=== PATIENT | female | born 1940 | race Asian ===

== ENCOUNTER 2018-12-16 13:40 | Inpatient (IN) | payer MEDICAID ==
[~2018-12-16] VITALS: Ht 147.3 cm; Wt 53.0 kg
[2018-12-16 13:48] VITALS: Ht 147.3 cm; Wt 53.0 kg
--- NOTE | 2018-12-16 13:51 | ERD ---
ER Documentation Chief Complaint Chief Complaint abdominal pain HPI The patient is an 78-year-old female, presenting to the ER because of abdominal pain for 1 day, the abdominal pain is diffuse but more prominent on the left side of the abdomen, denies similar symptoms previously, denies fever, chills, neck pain, chest pain, dyspnea, abdominal pain, vomiting. 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 Medications Home Meds Reported Medications Atorvastatin Calcium (Atorvastatin Calcium) 10 Mg Tablet, 5 MG PO QHS, #30 TAB 12/16/18 Loratadine* (Loratadine*) 10 Mg Tablet, 10 MG PO DAILY, #30 TAB 12/16/18 Famotidine* (Famotidine*) 20 Mg Tablet, 20 MG PO DAILY, #30 TAB 12/16/18 Amlodipine Besylate* (Amlodipine Besylate*) 10 Mg Tablet, 10 MG PO DAILY, #30 TAB 12/16/18 Lisinopril* (Lisinopril*) 10 Mg Tablet, 10 MG PO DAILY, #30 TAB 12/16/18 Metoprolol Succinate* (Toprol XL*) 25 Mg Tab.sr.24h, 25 MG PO DAILY, #30 TAB 12/16/18 Allergies Allergies: Coded Allergies: No Known Allergy (Unverified , 12/16/18) Physical Exam Vitals Vital Signs Date Temp Pulse Resp B/P (MAP) Pulse Ox O2 O2 Flow FiO2 Time Delivery Rate 12/16/18 98.6 97 18 147/74 93 Room Air 15:00 (98) 12/16/18 98.6 110 18 159/105 93 13:48 (123) Physical Exam Const: No acute distress. Head: Atraumatic. Eyes: Normal Conjunctiva. ENT: Normal External Ears, Nose and Mouth. Neck: Full range of motion. No meningismus. Resp: Clear to auscultation bilaterally. Cardio: Regular rate and rhythm. Abd: Soft, non distended, normal bowel sounds, abdominal tenderness, more tenderness on the left lower quadrant, positive for colostomy Skin: No petechiae or rashes. Back: No midline or flank tenderness. Ext: No cyanosis, or edema. Neur: Awake and alert. No focal deficit Psych: Normal Mood and Affect. Result Diagram: 12/18/18 0551 12/18/18 0551 Results 24 hrs Laboratory Tests Test 12/16/18 14:00 12/16/18 14:32 White Blood Count 11.1 10^3/ul Red Blood Count 5.75 10^6/ul Hemoglobin 16.4 g/dl Hematocrit 48.5 % Mean Corpuscular Volume 84.3 fl Mean Corpuscular Hemoglobin 28.5 pg Mean Corpuscular Hemoglobin Concent 33.8 g/dl Red Cell Distribution Width 13.2 % Platelet Count 286 10^3/UL Mean Platelet Volume 9.8 fl Immature Granulocytes % 0.500 % Neutrophils % 89.3 % Lymphocytes % 7.2 % Monocytes % 2.7 % Eosinophils % 0.0 % Basophils % 0.3 % Nucleated Red Blood Cells % 0.0 /100WBC Immature Granulocytes # 0.050 10^3/ul Neutrophils # 9.9 10^3/ul Lymphocytes # 0.8 10^3/ul Monocytes # 0.3 10^3/ul Eosinophils # 0.0 10^3/ul Basophils # 0.0 10^3/ul Nucleated Red Blood Cells # 0.0 10^3/ul Sodium Level 138 mmol/L Potassium Level 4.1 mmol/L Chloride Level 103 mmol/L Carbon Dioxide Level 24 mmol/L Anion Gap 11 Blood Urea Nitrogen 14 mg/dl Creatinine 0.66 mg/dl Est Glomerular Filtrat Rate mL/min mL/min Glucose Level 149 mg/dl Calcium Level 9.8 mg/dl Total Bilirubin 0.4 mg/dl Direct Bilirubin 0.00 mg/dl Indirect Bilirubin 0.4 mg/dl Aspartate Amino Transf (AST/SGOT) 30 IU/L Alanine Aminotransferase (ALT/SGPT) 17 IU/L Alkaline Phosphatase 123 IU/L Total Protein 8.8 g/dl Albumin 4.6 g/dl Globulin 4.20 g/dl Albumin/Globulin Ratio 1.09 Lipase 108 U/L Bedside Urine pH (LAB) 5.5 Bedside Urine Protein (LAB) 3+ Bedside Urine Glucose (UA) Negative Bedside Urine Ketones (LAB) 2+ Bedside Urine Blood Trace-intact Bedside Urine Nitrite (LAB) Negative Bedside Urine Leukocyte Esterase (L Negative Current Medications Medications Dose Sig/Jorje Start Time Status Last (Trade) Ordered Route PRN Stop Time Admin Dose Reason Admin Morphine 2 mg ONCE STAT 12/16/18 DC Sulfate IV 14:04 (morphine) 12/16/18 14:06 Ondansetron 4 mg ONCE STAT 12/16/18 DC HCl (Zofran IV 14:04 Inj) 12/16/18 14:06 Sodium 500 ml @ Q1H ONCE 12/16/18 DC 12/16/18 Chloride 500 mls/hr IV 15:30 15:44 12/16/18 16:29 Ketorolac 15 mg ONCE STAT 12/16/18 DC Tromethamine IV 15:46 (Toradol) 12/16/18 15:51 Procedures/[place] [id number] Radiology Main Line: [phone] DIAGNOSTIC IMAGING REPORT Patient: CHENTE WIGGINS : 1940 Age: 78 Sex: F MR #: [id number] DOS: 12/16/18 1404 Ordering MD: PATRICE MORGAN MD Location: E/R Room/Bed: PROCEDURE: CT ABDOMEN AND PELVIS WITHOUT CONTRAST. CLINICAL INDICATION: Abdominal pain TECHNIQUE: CT scan of the abdomen and pelvis without contrast was performed on a multidetector high-resolution CT scanner. The patient was scanned without intravenous contrast. Coronal and sagittal reformatted images were obtained from the axial source images. Images were reviewed on a high-resolution PACS workstation. The total exam CTDI equals 8.2 mGy and the total exam DLP equals 155.3 mGy-cm. One or more of the following dose reduction techniques were used: Automated exposure control. Adjustment of the mA and/or kV according to patient size. Use of iterative reconstruction technique. DICOM images are available COMPARISON: None FINDINGS: CT abdomen: Bilateral lower lobe atelectasis. Heart size is mildly enlarged. No same pericardial effusion. The liver is enlarged. No gross contour deforming masses. Gallbladder is identified, containing gallstones. No gross CT evidence of inflammatory changes at this time. No evidence of intrahepatic or extrahepatic dilatation. Spleen and pancreas are within normal limits. There is a possible duodenal diverticulum. Both adrenal glands are within normal limits. The right kidney is unremarkable. No evidence of obstructive uropathy. The left kidney is absent. The visualized GI tract demonstrates normal caliber loops of small and large bowel. No evidence of bowel obstruction. Stool filled loops of large bowel suggestive of constipation. There is focal inflammation involving the right colon with adjacent inflammatory changes. Anastomotic sutures are noted. Multiple diverticuli are identified. There are several adjacent mildly dilated loops of small bowel within right lower quadrant and pelvis. The appendix not visualized. Status post hemicolectomy. Left lower quadrant colostomy is identified. Atherosclerotic calcification aorta is identified. No same retroperitoneal lymphadenopathy. CT pelvis: The bladder is partially collapsed. The uterus is atrophic calcified. Status post rectosigmoid colon resection. No significant free fluid. Same pelvic lymphadenopathy. The visualized osseous structures demonstrates multilevel degenerative disc disease of the spine and generalized osteopenia. IMPRESSION: 1. Thickening of the howard of the right colon with adjacent fatty stranding and multiple diverticuli most likely consistent with focal diverticulitis. No evidence of perforation or focal fluid collections at this time. The appendix is within normal limits. 2. Multiple adjacent fluid-filled loops of small bowel which are mildly p rominent suggestive of adjacent enteritis and reactive ileus. 3. Cholelithiasis without gross CT evidence of inflammatory changes. For the left kidney is absent. Correlate clinical history. 5 atherosclerotic disease aorta. 6. Status post hemicolectomy. Left lower quadrant colostomy. 7. No evidence of free fluid or free air. No gross focal fluid collections. 8. Possible duodenal diverticulum. Recommend eventual follow-up CT scan with IV and oral contrast. RPTAT: AAPP Physician Too Date Time Electronically viewed and signed by Physician Too on 12/16/2018 15:25 JL/ CC: PATRICE MORGAN MD [id number] MEDICAL MAKING DECISION: The patient is a 78-year-old female, presenting with acute diverticulitis. She was treated with Levaquin IV and Flagyl IV for acute diverticulitis, 500 normal saline IV for acute dehydration, Toradol and 15 mg IV for pain with good response The differential diagnoses considered include but are not limited to cholelithiasis, cholecystitis, choledocholithiasis, cholangitis, pancreatitis, hepatitis, gastritis, peptic ulcer disease, gastric ulcer, appendicitis, cystitis, diverticulitis, partial small bowel obstruction. Departure Diagnosis: Primary Impression: Diverticulitis Additional Impressions: Cholelithiasis Dehydration Condition: Stable Comments I discussed the findings with the patient. I discussed the patient with the hospitalist Dr Brown at 3:50p . who was made aware of the lab, the treatment, the patient condition. The patient is admitted to [facility] Disclaimer: Inadvertent spelling and grammatical errors are likely due to EHR/dictation software use and do not reflect on the overall quality of patient care. Also, please note that the electronic time recorded on this note does not necessarily reflect the actual time of the patient encounter. PATRICE MORGAN MD Dec 16, 2018 13:51
[2018-12-16] MEDS ORDERED: morphine 2 MG INJ IV STA (14:04)
[2018-12-16] MEDS ORDERED: ONDANSETRON 4 MG INJ IV STA (14:04)
[2018-12-16] MEDS ORDERED: LORA10TA3 PO (15:14)
[2018-12-16] MEDS ORDERED: METO-335 PO (15:14)
[2018-12-16] MEDS ORDERED: AMLO-147 PO (15:14)
[2018-12-16] MEDS ORDERED: FAMO20TA18 PO (15:14)
[2018-12-16] MEDS ORDERED: ATOR10TA65 PO (15:14)
[2018-12-16] MEDS ORDERED: LISI10TA2 PO (15:14)
[2018-12-16] MEDS ORDERED: SOD CHLORIDE 0.9% 500 ML IV ONE (15:30)
[2018-12-16] MEDS ORDERED: KETOROLAC 15 MG INJ IV STA (15:46)
[2018-12-16] MEDS ORDERED: metroNIDAZOLE 500 MG/NS (PMX) 100 ML IVPB ONE (16:00)
[2018-12-16] MEDS ORDERED: LEVOFLOXACIN 750MG/D5W (PMX) 150 ML IVPB ONE (16:00)
[2018-12-16] MEDS ORDERED: FAMOTIDINE 20 MG TAB PO SCH (16:30)
[2018-12-16] MEDS ORDERED: NACL 0.9% 3 ML SYG IV SCH (17:00)
[2018-12-16] MEDS ORDERED: ACETAMINOPHEN 325 MG TAB PO PRN (17:00)
--- NOTE | 2018-12-16 17:01 | HP ---
Date/Time of Note Date/Time of Note DATE: 12/16/18 TIME: 16:48 Assessment/Plan VTE Prophylaxis SCD applied (from Nsg): Yes Pharmacological prophylaxis: NA/contraindicated Pharm contraindication: low risk/ambulating Lines/Catheters IV Catheter Type (from Nrsg): Saline Lock Assessment/Plan Assessment/Plan 78 yo woman with history of colon cancer presents with abdominal pain. #Abdominal pain - Differential includes food poisoning versus diverticulitis versus dyspepsia - Will start protonix BID - IV antibiotics for diverticulitis: cipro and flagyl for 7-10 days, repeat colonoscopy per [facility] - IV fluids - Exam and imaging otherwise benign. Will advance diet to clear liquids for now. #HTN - Continue home antihypertensives. DVT: SCDs GI: Protonix Result Diagram: 12/16/18 1400 12/16/18 1400 HPI/ROS Admit Date/Time Admit Date/Time Dec 16, 2018 Hx of Present Illness Ms. Mckeon is a pleasant 78 yo woman with history of colorectal carcinoma and diverticulosis who presents with acute abdominal pain. She was in her usual state of health until last night, when she was woken up by acute stabbing mid abdominal pain. Looks about lower epigastric -> umbilical. She had eaten some ham and [id number] for dinner that had been left out for a few days so she was concerned about food poisoning. She induced vomiting in herself and that seemed to resolve symptoms slightly. She then came to the hospital for further evaluation. She had a colonoscopy late 2017 at [facility] showing diverticulosis or diverticulitis. She's never had this pain before. In the ED she was tachy to 110, afebrile, BP 159/105. WBC 11.1, labs otherwise unremarkable. CT showed constipation, R colon diverticulitis. ROS She denies fever, chills, night sweats, weight loss, fatigue, malaise, headache, vision changes, sore throat, dysphagia, cough, dyspnea, chest pain/pressure/palpitations, diarrhea, constipation, melena. PMH/Family/Social Past Medical History Colon cancer Jul 2014 with neoadjuvant chemoradiation and hemicolectomy with permanent end colostomy. Hypertension Dyslipidemia Medications Current Medications Sodium Chloride 500 ml @ 500 mls/hr Q1H ONCE IV Last administered on 12/16/18at 15:44; Admin Dose 500 MLS/HR; Start 2/18/19 at 15:30; Stop 12/16/18 at 16:29 Levofloxacin/ Dextrose 150 ml @ 100 mls/hr ONCE ONCE IVPB ; Start 12/16/18 at 16:00; Stop 12/16/18 at 17:29 Metronidazole 100 ml @ 100 mls/hr ONCE ONCE IVPB Last administered on 12/16/18at 15:42; Admin Dose 100 MLS/HR; Start 12/16/18 at 16:00; Stop 12/16/18 at 16:59 Coded Allergies: No Known Allergy (Unverified , 12/16/18) Past Surgical History Jul 2014 end colostomy 1979 partial thyroidectomy 1972 complete L nephrectomy (donated it to her sister) Social History Lives at home with cousin. Cares for self. Alcohol Use: none Smoking Status: Former smoker Drug Use: none Exam/Review of Systems Vital Signs Vitals Vital Signs Date Temp Pulse Resp B/P (MAP) Pulse Ox O2 O2 Flow FiO2 Time Delivery Rate 12/16/18 98.6 97 18 147/74 93 Room Air 15:00 (98) Exam Exam Gen: Well appearing woman in no acute distress. Eyes: PERRL, no icterus HEENT: Dry mucous membranes, clear oropharynx, no pharyngeal erythema Neck: No JVD. No lymphadenopathy. Card: Regular rate and rhythm, no murmurs Pulm: Clear to auscultation bilaterally. Abd: LLQ colostomy with firm, formed stool. Diffusely tender to moderate palpation. Nondistended, no guarding, no rebound tenderness. Ext: No cyanosis, clubbing, edema Skin: warm, dry, well perfused. LAKESHA TAMAYO MD Dec 16, 2018 17:00
[2018-12-16] MEDS: PANTOPRAZOLE 40 MG INJ IV SCH (18:23)
[2018-12-16 20:00] VITALS: BP 129/71; PULSE 76; RESP 18
[2018-12-16] MEDS: SENNA TAB PO SCH (20:46)
[2018-12-16] MEDS: ATORVASTATIN 10 MG TAB PO SCH (20:46)
[2018-12-16] MEDS: CIPROFLOXACIN 400MG/D5W 200 ML IVPB SCH (21:34)
[2018-12-16] MEDS ORDERED: metroNIDAZOLE (5 MG/ML) IV SYG IV* SCH (22:00)
[2018-12-16] MEDS: Metronidazole 500 MG in NS 100 ML IVPB SCH (22:47)
[2018-12-16] MEDS: ONDANSETRON 4 MG INJ IV PRN (22:47)
[2018-12-17 02:00] VITALS: BP 113/63; PULSE 78; RESP 18
[2018-12-17] MEDS: Metronidazole 500 MG in NS 100 ML IVPB SCH ×3 (06:12→22:59)
[2018-12-17] MEDS: PANTOPRAZOLE 40 MG INJ IV SCH ×2 (06:12→18:04)
[2018-12-17 07:15] VITALS: BP 126/65; PULSE 74; RESP 18
[2018-12-17] MEDS: LORATADINE 10 MG TAB PO SCH (10:34)
[2018-12-17] MEDS: AMLODIPINE 10 MG TAB PO SCH (10:34)
[2018-12-17] MEDS: SENNA TAB PO SCH ×2 (10:35→20:35)
[2018-12-17] MEDS: METOPROLOL (XL) 25 MG TAB PO SCH (10:35)
[2018-12-17] MEDS: LISINOPRIL 10 MG TAB PO SCH (10:36)
[2018-12-17] MEDS: ONDANSETRON 4 MG INJ IV PRN (10:41)
[2018-12-17] MEDS: CIPROFLOXACIN 400MG/D5W 200 ML IVPB SCH ×2 (10:44→21:40)
--- NOTE | 2018-12-17 13:16 | PN ---
Date/Time of Note Date/Time of Note DATE: 12/17/18 TIME: 13:12 Assessment/Plan VTE Prophylaxis Risk score (from Nsg)>0 risk: 4 SCD applied (from Nsg): Yes Pharmacological prophylaxis: NA/contraindicated Pharm contraindication: low risk/ambulating Lines/Catheters IV Catheter Type (from Nrsg): Saline Lock Urinary Cath still in place: No Assessment/Plan Assessment/Plan 78 yo woman with history of colon cancer presents with abdominal pain. #Abdominal pain #PO intolerance - Differential includes food poisoning versus diverticulitis versus dyspepsia - Cont protonix BID - IV antibiotics for diverticulitis: cipro and flagyl for 7-10 days, repeat colonoscopy per [facility] - IV fluids - Continue clear liquids, advance as tolerated. - Patient appears constipated, will advance bowel regimen. #HTN - Continue home antihypertensives. DVT: SCDs GI: Protonix Result Diagram: 12/17/1852712/17/18527 Subjective 24 Hr Interval Summary Free Text/Dictation Continues to have intermittent episodes of stabbing mid abdominal pain lasting seconds. Cannot tolerate clear liquid diet. Develops nausea soon after drinking. Complains of dizziness when standing. Has been incontinent of urine; says this has lasted over a year. Exam/Review of Systems Exam Vitals Vital Signs Date Temp Pulse Resp B/P (MAP) Pulse Ox O2 O2 Flow FiO2 Time Delivery Rate 12/17/18 98.5 74 18 126/65 94 07:15 (85) 12/16/18 Room Air 15:00 Intake and Output 12/16/18 12/16/18 12/17/18 1515:00 23:00 07:00 IntakeIntake Total 400 ml 100 ml BalanceBalance 400 ml 100 ml Exam Gen: Well appearing woman in no acute distress. Eyes: PERRL, no icterus HEENT: Dry mucous membranes, clear oropharynx, no pharyngeal erythema Neck: No JVD. No lymphadenopathy. Card: Regular rate and rhythm, no murmurs Pulm: Clear to auscultation bilaterally. Abd: LLQ colostomy with firm, formed stool. Nontender to moderate palpation thr oughout. Nondistended, no guarding, no rebound tenderness. Ext: No cyanosis, clubbing, edema Skin: warm, dry, well perfused. Results Results 24hrs Laboratory Tests Test 12/16/18 14:00 12/16/18 14:32 12/17/18 05:28 White Blood Count 11.1 H 8.1 # Red Blood Count 5.75 H 4.51 # Hemoglobin 16.4 H 12.9 # Hematocrit 48.5 H 38.9 Mean Corpuscular Volume 84.3 86.3 Mean Corpuscular Hemoglobin 28.5 L 28.6 L Mean Corpuscular 33.8 33.2 Hemoglobin Concent Red Cell Distribution Width 13.2 13.2 Platelet Count 286 226 # Mean Platelet Volume 9.8 9.6 Immature Granulocytes % 0.500 H 0.400 Neutrophils % 89.3 H 78.6 H Lymphocytes % 7.2 L 13.5 L Monocytes % 2.7 7.0 Eosinophils % 0.0 0.4 Basophils % 0.3 0.1 Nucleated Red Blood Cells % 0.0 0.0 Immature Granulocytes # 0.050 H 0.030 Neutrophils # 9.9 H 6.4 Lymphocytes # 0.8 1.1 Monocytes # 0.3 0.6 Eosinophils # 0.0 0.0 Basophils # 0.0 0.0 Nucleated Red Blood Cells # 0.0 0.0 Sodium Level 138 138 Potassium Level 4.1 4.3 Chloride Level 103 101 Carbon Dioxide Level 24 24 Anion Gap 11 13 Blood Urea Nitrogen 14 16 Creatinine 0.66 0.86 Est Glomerular Filtrat Rate mL/min Glucose Level 149 120 Calcium Level 9.8 8.8 Total Bilirubin 0.4 0.4 Direct Bilirubin 0.00 0.00 Indirect Bilirubin 0.4 0.4 Aspartate Amino Transf (AST/SGOT) 30 20 Alanine 17 21 Aminotransferase (ALT/SGPT) Alkaline Phosphatase 123 H 69 Total Protein 8.8 H 6.8 # Albumin 4.6 3.5 # Globulin 4.20 H 3.30 H Albumin/Globulin Ratio 1.09 1.06 Lipase 108 Bedside Urine pH (LAB) 5.5 Bedside Urine Protein (LAB) 3+ H Bedside Urine Glucose (UA) Negative Bedside Urine Ketones (LAB) 2+ H Bedside Urine Blood Trace-intact H Bedside Urine Nitrite (LAB) Negative Bedside Urine Leukocyte Esterase Negative (L Hemoglobin A1c 5.9 Phosphorus Level 4.3 Magnesium Level 1.8 Triglycerides Level 127 Cholesterol Level 217 H LDL Cholesterol, Calculated 161 HDL Cholesterol 31 L Cholesterol/HDL Ratio 7.0 Thyroid Stimulating Hormone (TSH) 0.821 Medications Medication Current Medications Amlodipine Besylate (Norvasc) 10 mg DAILY PO Last administered on 12/17/18 10:34; Admin Dose 10 MG; Start 12/17/18 at 09:00 Atorvastatin Calcium (Lipitor) 5 mg QHS PO Last administered on 12/16/18 20:46; Admin Dose 5 MG; Start 12/16/18 at 21:00 Lisinopril (Zestril) 10 mg DAILY PO Last administered on 12/17/18 10:36; Admin Dose 10 MG; Start 12/17/18 at 09:00 Loratadine (Claritin) 10 mg DAILY PO Last administered on 12/17/18 10:34; Admin Dose 10 MG; Start 12/17/18 at 09:00 Metoprolol Succinate (Toprol Xl) 25 mg DAILY PO Last administered on 12/17/18 10:35; Admin Dose 25 MG; Start 12/17/18 at 09:00 IV Flush (NS 3 ml) 3 ml PER PROTOCOL IV ; Start 12/16/18 at 17:00 Ondansetron HCl (Zofran Inj) 4 mg Q6H PRN IV NAUSEA/VOMITING Last administered on 12/17/18 10:41; Admin Dose 4 MG; Start 12/16/18 at 17:00 Acetaminophen (Tylenol Tab) 650 mg Q6H PRN PO .PAIN 1-3 OR TEMP Last administered on 12/16/18 18:24; Admin Dose 650 MG; Start 12/16/18 at 17:00 Senna (Senokot) 2 tab BID PO Last administered on 12/17/18 10:35; Admin Dose 2 TAB; Start 12/16/18 at 21:00 Ciprofloxacin/ Dextrose 200 ml @ 200 mls/hr Q12 IVPB Last administered on 12/17/18 10:44; Admin Dose 200 MLS/HR; Start 12/16/18 at 21:00 Metronidazole 100 ml @ 100 mls/hr Q8 IVPB Last administered on 12/17/18 06:12; Admin Dose 100 MLS/HR; Start 12/16/18 at 22:00 Pantoprazole (Protonix Iv) 40 mg BID@,18 IV Last administered on 12/17/18 06:12; Admin Dose 40 MG; Start 2/18/19 at 18:00 LAKESHA TAMAYO MD Dec 17, 2018 13:16
[2018-12-17] MEDS: SOD CHLORIDE 0.9% 1,000 ML IV SCH (14:32)
[2018-12-17] MEDS: POLYETHYLENE GLYCOL 17 GM PACKET PO SCH (14:32)
[2018-12-17 15:05] VITALS: BP 121/61; PULSE 71; RESP 18
[2018-12-17 20:30] VITALS: BP 149/63; PULSE 85; RESP 18
[2018-12-17] MEDS: ATORVASTATIN 10 MG TAB PO SCH (20:35)
[2018-12-18 02:24] VITALS: BP 118/59; PULSE 61; RESP 18
[2018-12-18] MEDS: SOD CHLORIDE 0.9% 1,000 ML IV SCH ×2 (05:55→16:10)
[2018-12-18] MEDS: PANTOPRAZOLE 40 MG INJ IV SCH ×2 (05:55→17:41)
[2018-12-18] MEDS: Metronidazole 500 MG in NS 100 ML IVPB SCH ×3 (06:05→23:19)
[2018-12-18 08:00] VITALS: BP 131/63; PULSE 70; RESP 16
[2018-12-18] MEDS: CIPROFLOXACIN 400MG/D5W 200 ML IVPB SCH ×2 (08:42→22:13)
[2018-12-18] MEDS: POLYETHYLENE GLYCOL 17 GM PACKET PO SCH (08:42)
[2018-12-18] MEDS: METOPROLOL (XL) 25 MG TAB PO SCH (08:44)
[2018-12-18] MEDS: LISINOPRIL 10 MG TAB PO SCH (08:45)
[2018-12-18] MEDS: AMLODIPINE 10 MG TAB PO SCH (08:45)
[2018-12-18] MEDS: SENNA TAB PO SCH ×2 (08:45→20:11)
[2018-12-18] MEDS: LORATADINE 10 MG TAB PO SCH (08:46)
--- NOTE | 2018-12-18 14:40 | PN ---
Date/Time of Note Date/Time of Note DATE: 12/18/18 TIME: 14:35 Assessment/Plan VTE Prophylaxis Risk score (from Nsg)>0 risk: 5 SCD applied (from Nsg): Yes Pharmacological prophylaxis: LMWH Lines/Catheters IV Catheter Type (from Nrsg): Saline Lock Urinary Cath still in place: No Assessment/Plan Assessment/Plan 78 yo woman with history of colon cancer presents with abdominal pain. #Abdominal pain #PO intolerance - Differential includes food poisoning versus diverticulitis versus dyspepsia - Cont protonix BID - IV antibiotics for diverticulitis: cipro and flagyl for 7-10 days, repeat colonoscopy per [facility] - IV fluids - Continue clear liquids, advance as tolerated. - No more constipation #Hypoxia - She reports history of COPD - Will continue home albuterol - If drops hypoxic <88% will qualify for home O2. #HTN - Continue home antihypertensives. DVT: SCDs GI: Protonix Result Diagram: 12/18/18 0551 12/18/18 0551 Subjective 24 Hr Interval Summary Free Text/Dictation Last night, apparently she got hypoxic and required nasal cannula. The patient reports history of COPD, has PRN albuterol. Vomited last night trying to eat clear liquids. This morning was unable to get out of bed with PT due to dizziness and fatigue. Now having liquid stools. Exam/Review of Systems Exam Vitals Vital Signs Date Temp Pulse Resp B/P (MAP) Pulse Ox O2 O2 Flow FiO2 Time Delivery Rate 12/18/18 98.4 70 16 131/63 92 Room Air 08:00 (85) Intake and Output 12/17/18 12/17/18 12/18/18 1515:00 23:00 07:00 IntakeIntake Total 740 ml 725 ml 1275 ml BalanceBalance 740 ml 725 ml 1275 ml Exam Gen: Well appearing woman in no acute distress. Eyes: PERRL, no icterus HEENT: Moist mucous membranes, clear oropharynx, no pharyngeal erythema Neck: No JVD. No lymphadenopathy. Card: Regular rate and rhythm, no murmurs Pulm: Clear to auscultation bilaterally. Abd: LLQ colostomy with liquid stool. Nontender to moderate palpation throughout. Nondistended, no guarding, no rebound tenderness. Ext: No cyanosis, clubbing, edema Skin: warm, dry, well perfused. Results Results 24hrs Laboratory Tests Test 12/18/18 05:51 White Blood Count 6.6 Red Blood Count 4.17 L Hemoglobin 12.0 Hematocrit 36.9 L Mean Corpuscular Volume 88.5 Mean Corpuscular Hemoglobin 28.8 L Mean Corpuscular Hemoglobin Concent 32.5 Red Cell Distribution Width 13.2 Platelet Count 207 Mean Platelet Volume 9.7 Immature Granulocytes % 0.300 Neutrophils % 73.4 Lymphocytes % 18.1 Monocytes % 7.1 Eosinophils % 0.8 Basophils % 0.3 Nucleated Red Blood Cells % 0.0 Immature Granulocytes # 0.020 Neutrophils # 4.9 Lymphocytes # 1.2 Monocytes # 0.5 Eosinophils # 0.1 Basophils # 0.0 Nucleated Red Blood Cells # 0.0 Sodium Level 140 Potassium Level 3.8 Chloride Level 104 Carbon Dioxide Level 24 Anion Gap 12 Blood Urea Nitrogen 11 Creatinine 0.81 Est Glomerular Filtrat Rate mL/min Glucose Level 104 Calcium Level 8.6 Phosphorus Level 3.8 Magnesium Level 1.8 Total Bilirubin 0.2 Direct Bilirubin 0.00 Indirect Bilirubin 0.2 Aspartate Amino Transf (AST/SGOT) 18 Alanine Aminotransferase (ALT/SGPT) 21 Alkaline Phosphatase 59 Total Protein 6.1 Albumin 3.0 L Globulin 3.10 Albumin/Globulin Ratio 0.96 Medications Medication Current Medications Amlodipine Besylate (Norvasc) 10 mg DAILY PO Last administered on 12/18/18at 08:45; Admin Dose 10 MG; Start 12/17/18 at 09:00 Atorvastatin Calcium (Lipitor) 5 mg QHS PO Last administered on 12/17/18at 20:35; Admin Dose 5 MG; Start 12/16/18 at 21:00 Lisinopril (Zestril) 10 mg DAILY PO Last administered on 12/18/18 08:45; Admin Dose 10 MG; Start 12/17/18 at 09:00 Loratadine (Claritin) 10 mg DAILY PO Last administered on 12/18/18 08:46; Admin Dose 10 MG; Start 12/17/18 at 09:00 Metoprolol Succinate (Toprol Xl) 25 mg DAILY PO Last administered on 12/18/18at 08:44; Admin Dose 25 MG; Start 12/17/18 at 09:00 IV Flush (NS 3 ml) 3 ml PER PROTOCOL IV ; Start 12/16/18 at 17:00 Ondansetron HCl (Zofran Inj) 4 mg Q6H PRN IV NAUSEA/VOMITING Last administered on 12/17/18 10:41; Admin Dose 4 MG; Start 12/16/18 at 17:00 Acetaminophen (Tylenol Tab) 650 mg Q6H PRN PO .PAIN 1-3 OR TEMP Last administered on 12/16/18 18:24; Admin Dose 650 MG; Start 12/16/18 at 17:00 Senna (Senokot) 2 tab BID PO Last administered on 12/18/18 08:45; Admin Dose 2 TAB; Start 12/16/18 at 21:00 Ciprofloxacin/ Dextrose 200 ml @ 200 mls/hr Q12 IVPB Last administered on 12/18/18 08:42; Admin Dose 200 MLS/HR; Start 12/16/18 at 21:00 Metronidazole 100 ml @ 100 mls/hr Q8 IVPB Last administered on 12/18/18 14:22; Admin Dose 100 MLS/HR; Start 12/16/18 at 22:00 Pantoprazole (Protonix Iv) 40 mg BID@06,18 IV Last administered on 12/18/18 05:55; Admin Dose 40 MG; Start 12/16/18 at 18:00 Polyethylene Glycol (Miralax) 17 gm DAILY PO Last administered on 12/18/18 08:42; Admin Dose 17 GM; Start 12/17/18 at 13:30 Sodium Chloride 1,000 ml @ 75 mls/hr [id number] IV Last administered on 12/18/18 05:55; Admin Dose 75 MLS/HR; Start 12/17/18 at 13:30 LAKESHA TAMAYO MD Dec 18, 2018 14:40
[2018-12-18 15:00] VITALS: BP 140/60; PULSE 72; RESP 18
[2018-12-18] MEDS ORDERED: ALBUTEROL HFA 8 GM INHALER INH PRN (15:00)
[2018-12-18] MEDS ORDERED: MAGNESIUM SULFATE 2 GM/50 ML 50 ML IVPB ONE (16:00)
[2018-12-18 20:00] VITALS: BP 123/60; PULSE 69; RESP 18
[2018-12-18] MEDS: ATORVASTATIN 10 MG TAB PO SCH (20:10)
[2018-12-19 02:20] VITALS: BP 120/62; PULSE 70; RESP 18
[2018-12-19] MEDS: SOD CHLORIDE 0.9% 1,000 ML IV SCH ×2 (03:21→18:50)
[2018-12-19] MEDS: PANTOPRAZOLE 40 MG INJ IV SCH ×2 (05:18→17:24)
[2018-12-19] MEDS: Metronidazole 500 MG in NS 100 ML IVPB SCH ×3 (05:18→23:35)
[2018-12-19 07:45] VITALS: BP 139/61; PULSE 76; RESP 18
[2018-12-19] MEDS: CIPROFLOXACIN 400MG/D5W 200 ML IVPB SCH ×2 (08:29→21:54)
[2018-12-19] MEDS: POLYETHYLENE GLYCOL 17 GM PACKET PO SCH (08:30)
[2018-12-19] MEDS: LISINOPRIL 10 MG TAB PO SCH (08:31)
[2018-12-19] MEDS: LORATADINE 10 MG TAB PO SCH (08:31)
[2018-12-19] MEDS: SENNA TAB PO SCH ×2 (08:31→20:12)
[2018-12-19] MEDS: AMLODIPINE 10 MG TAB PO SCH (08:31)
[2018-12-19] MEDS: METOPROLOL (XL) 25 MG TAB PO SCH (08:32)
[2018-12-19] MEDS: ENOXAPARIN 40 MG/0.4 ML SYG SC SCH (08:33)
--- NOTE | 2018-12-19 12:49 | PN ---
Date/Time of Note Date/Time of Note DATE: 12/19/18 TIME: 12:46 Assessment/Plan VTE Prophylaxis Risk score (from Nsg)>0 risk: 5 SCD applied (from Nsg): Yes Pharmacological prophylaxis: LMWH Lines/Catheters IV Catheter Type (from Nrsg): Peripheral IV Urinary Cath still in place: No Assessment/Plan Assessment/Plan 78 yo woman with history of colon cancer presents with abdominal pain. #Abdominal pain #PO intolerance - Differential includes food poisoning versus diverticulitis versus dyspepsia - Cont protonix BID - IV antibiotics for diverticulitis: cipro and flagyl for 7-10 days, repeat colonoscopy per [facility] - IV fluids - Continue clear liquids, advance as tolerated. - Patient is still NPO intolerant with nausea and vomiting. Will plan for XR small bowel followthrough. #Hypoxia - She reports history of COPD - Will continue home albuterol - If drops hypoxic <88% will qualify for home O2. #HTN - Continue home antihypertensives. DVT: SCDs GI: Protonix Result Diagram: 12/19/18 0902 12/19/18 0902 Results 24hrs Laboratory Tests Test 12/19/18 09:02 White Blood Count 8.5 # Red Blood Count 4.36 Hemoglobin 12.3 Hematocrit 38.2 Mean Corpuscular Volume 87.6 Mean Corpuscular Hemoglobin 28.2 L Mean Corpuscular Hemoglobin Concent 32.2 Red Cell Distribution Width 13.1 Platelet Count 198 Mean Platelet Volume 9.5 Immature Granulocytes % 0.700 H Neutrophils % 79.7 H Lymphocytes % 12.5 L Monocytes % 6.0 Eosinophils % 0.7 Basophils % 0.4 Nucleated Red Blood Cells % 0.0 Immature Granulocytes # 0.060 H Neutrophils # 6.8 Lymphocytes # 1.1 Monocytes # 0.5 Eosinophils # 0.1 Basophils # 0.0 Nucleated Red Blood Cells # 0.0 Sodium Level 138 Potassium Level 3.8 Chloride Level 108 Carbon Dioxide Level 23 Anion Gap 7 Blood Urea Nitrogen 8 Creatinine 0.73 Est Glomerular Filtrat Rate mL/min Glucose Level 176 Calcium Level 8.5 Phosphorus Level 3.3 Magnesium Level 1.7 Subjective 24 Hr Interval Summary Free Text/Dictation After eating grits had several more episodes of emesis. Reports stabbing abdominal pain has improved. Able to sit up, not ambulate with PT. Exam/Review of Systems Exam Vitals Vital Signs Date Temp Pulse Resp B/P (MAP) Pulse Ox O2 O2 Flow FiO2 Time Delivery Rate 12/19/18 98.9 76 18 139/61 94 Nasal 07:45 (87) Cannula Intake and Output 12/18/18 12/18/18 12/19/18 1515:00 23:00 07:00 IntakeIntake Total 850 ml 900 ml 1280 ml BalanceBalance 850 ml 900 ml 1280 ml Exam Gen: Well appearing woman in no acute distress. Eyes: PERRL, no icterus HEENT: Moist mucous membranes, clear oropharynx, no pharyngeal erythema Neck: No JVD. No lymphadenopathy. Card: Regular rate and rhythm, no murmurs Pulm: Clear to auscultation bilaterally. Abd: LLQ colostomy with liquid stool. Guarding to deep palpation. Nondistended, no rebound tenderness. Ext: No cyanosis, clubbing, edema Skin: warm, dry, well perfused. Results Results 24hrs Laboratory Tests Test 12/19/18 09:02 White Blood Count 8.5 # Red Blood Count 4.36 Hemoglobin 12.3 Hematocrit 38.2 Mean Corpuscular Volume 87.6 Mean Corpuscular Hemoglobin 28.2 L Mean Corpuscular Hemoglobin Concent 32.2 Red Cell Distribution Width 13.1 Platelet Count 198 Mean Platelet Volume 9.5 Immature Granulocytes % 0.700 H Neutrophils % 79.7 H Lymphocytes % 12.5 L Monocytes % 6.0 Eosinophils % 0.7 Basophils % 0.4 Nucleated Red Blood Cells % 0.0 Immature Granulocytes # 0.060 H Neutrophils # 6.8 Lymphocytes # 1.1 Monocytes # 0.5 Eosinophils # 0.1 Basophils # 0.0 Nucleated Red Blood Cells # 0.0 Sodium Level 138 Potassium Level 3.8 Chloride Level 108 Carbon Dioxide Level 23 Anion Gap 7 Blood Urea Nitrogen 8 Creatinine 0.73 Est Glomerular Filtrat Rate mL/min Glucose Level 176 Calcium Level 8.5 Phosphorus Level 3.3 Magnesium Level 1.7 Medications Medication Current Medications Amlodipine Besylate (Norvasc) 10 mg DAILY PO Last administered on 12/19/18at 08:31; Admin Dose 10 MG; Start 12/17/18 at 09:00 Atorvastatin Calcium (Lipitor) 5 mg QHS PO Last administered on 12/18/18at 20:10; Admin Dose 5 MG; Start 12/16/18 at 21:00 Lisinopril (Zestril) 10 mg DAILY PO Last administered on 12/19/18 08:31; Admin Dose 10 MG; Start 12/17/18 at 09:00 Loratadine (Claritin) 10 mg DAILY PO Last administered on 12/19/18 08:31; Admin Dose 10 MG; Start 12/17/18 at 09:00 Metoprolol Succinate (Toprol Xl) 25 mg DAILY PO Last administered on 12/19/18 08:32; Admin Dose 25 MG; Start 12/17/18 at 09:00 IV Flush (NS 3 ml) 3 ml PER PROTOCOL IV ; Start 12/16/18 at 17:00 Ondansetron HCl (Zofran Inj) 4 mg Q6H PRN IV NAUSEA/VOMITING Last administered on 12/17/18 10:41; Admin Dose 4 MG; Start 12/16/18 at 17:00 Acetaminophen (Tylenol Tab) 650 mg Q6H PRN PO .PAIN 1-3 OR TEMP Last administered on 12/16/18 18:24; Admin Dose 650 MG; Start 12/16/18 at 17:00 Senna (Senokot) 2 tab BID PO Last administered on 12/19/18 08:31; Admin Dose 2 TAB; Start 12/16/18 at 21:00 Ciprofloxacin/ Dextrose 200 ml @ 200 mls/hr Q12 IVPB Last administered on 12/19/18 08:29; Admin Dose 200 MLS/HR; Start 12/16/18 at 21:00 Metronidazole 100 ml @ 100 mls/hr Q8 IVPB Last administered on 12/19/18 05:18; Admin Dose 100 MLS/HR; Start 12/16/18 at 22:00 Pantoprazole (Protonix Iv) 40 mg BID@06,18 IV Last administered on 12/19/18 05:18; Admin Dose 40 MG; Start 12/16/18 at 18:00 Polyethylene Glycol (Miralax) 17 gm DAILY PO Last administered on 12/19/18 08:30; Admin Dose 17 GM; Start 12/17/18 at 13:30 Sodium Chloride 1,000 ml @ 75 mls/hr [id number] IV Last administered on 12/19/18 03:21; Admin Dose 75 MLS/HR; Start 12/17/18 at 13:30 Albuterol (Ventolin Hfa) 2 puff Q4H RESP THERAPY PRN INH SHORTNESS OF BREATH; Start 12/18/18 at 15:00 Enoxaparin Sodium (Lovenox) 40 mg DAILY SC Last administered on 12/19/18at 08:33; Admin Dose 40 MG; Start 12/19/18 at 09:00 LAKESHA TAMAYO MD Dec 19, 2018 12:48
[2018-12-19 14:19] VITALS: BP 135/64; PULSE 81; RESP 16
[2018-12-19] MEDS: ONDANSETRON 4 MG INJ IV PRN (14:28)
[2018-12-19] MEDS ORDERED: DIATR MEGLU/DIATRIZOATE SODIUM 120 ML BTL ONE (14:31)
[2018-12-19 20:00] VITALS: BP 146/66; PULSE 71; RESP 18
[2018-12-19] MEDS: ATORVASTATIN 10 MG TAB PO SCH (20:13)
[2018-12-20] MEDS: SOD CHLORIDE 0.9% 1,000 ML IV SCH ×2 (00:37→20:38)
[2018-12-20 02:00] VITALS: BP 120/60; PULSE 70; RESP 18
[2018-12-20] MEDS: Metronidazole 500 MG in NS 100 ML IVPB SCH ×2 (05:00→14:07)
[2018-12-20] MEDS: PANTOPRAZOLE 40 MG INJ IV SCH (05:01)
[2018-12-20 07:45] VITALS: BP 138/63; PULSE 70; RESP 18
[2018-12-20] MEDS: POLYETHYLENE GLYCOL 17 GM PACKET PO SCH (09:00)
[2018-12-20] MEDS: LORATADINE 10 MG TAB PO SCH ×2 (09:11→09:12)
[2018-12-20] MEDS: CIPROFLOXACIN 400MG/D5W 200 ML IVPB SCH (09:12)
[2018-12-20] MEDS: SENNA TAB PO SCH ×3 (09:12→20:36)
[2018-12-20] MEDS: ENOXAPARIN 40 MG/0.4 ML SYG SC SCH (09:16)
[2018-12-20] MEDS: LISINOPRIL 10 MG TAB PO SCH (09:19)
[2018-12-20] MEDS: METOPROLOL (XL) 25 MG TAB PO SCH (09:20)
[2018-12-20] MEDS: AMLODIPINE 10 MG TAB PO SCH (09:20)
[2018-12-20] MEDS: ONDANSETRON 4 MG INJ IV PRN (10:00)
[2018-12-20] MEDS ORDERED: ONDANSETRON 4 MG INJ IV PRN (14:30)
[2018-12-20 14:40] VITALS: BP 127/59; PULSE 71; RESP 18
--- NOTE | 2018-12-20 14:50 | PN ---
Date/Time of Note Date/Time of Note DATE: 12/20/18 TIME: 14:47 Assessment/Plan VTE Prophylaxis Risk score (from Ns)>0 risk: 5 SCD applied (from Ns): Yes Pharmacological prophylaxis: NA/contraindicated Pharm contraindication: low risk/ambulating Lines/Catheters IV Catheter Type (from Nrsg): Peripheral IV Urinary Cath still in place: No Assessment/Plan Assessment/Plan 78 yo woman with history of colon cancer presents with abdominal pain. #Abdominal pain - Differential includes food poisoning versus diverticulitis versus dyspepsia - Cont protonix BID - IV fluids - Continue full liquids, advance as tolerated. - She reports abdominal pain has resolved. #PO intolerance, nausea and vomiting - I'm concerned that her antibiotics may be causing this. - She has only been on for 5 days, but no longer is having diverticulitis type pain. - Will stop course today and reevaluate - Small bowel followthrough normal, she is passing stool; so no obstruction or ileus. #Chest tightness - History not consistent with ischemic heart disease - Will repeat EKG #Hypoxia - She reports history of COPD - Will continue home albuterol - If drops hypoxic <88% will qualify for home O2. #HTN - Continue home antihypertensives. DVT: SCDs GI: Protonix Result Diagram: 12/19/18 0902 12/19/18 09 Subjective 24 Hr Interval Summary Free Text/Dictation Got XR small bowel followthough yesterday, was negative. No nausea or vomiting last night. But had another episode early this afternoon. Also complains of chest tightness, has been present every day, not associated with activity. Exam/Review of Systems Exam Vitals Vital Signs Date Temp Pulse Resp B/P (MAP) Pulse Ox O2 O2 Flow FiO2 Time Delivery Rate 12/20/18 98.4 70 18 138/63 92 Nasal 07:45 (88) Cannula Intake and Output 12/19/18 12/19/18 12/20/18 1515:00 23:00 07:00 IntakeIntake Total 800 ml 600 ml 1400 ml BalanceBalance 800 ml 600 ml 1400 ml Exam Gen: Well appearing woman in no acute distress. Eyes: PERRL, no icterus HEENT: Moist mucous membranes, clear oropharynx, no pharyngeal erythema Neck: No JVD. No lymphadenopathy. Card: Regular rate and rhythm, no murmurs Pulm: Clear to auscultation bilaterally. Abd: LLQ colostomy with liquid stool. Guarding to deep palpation. Nondistended, no rebound tenderness. Ext: No cyanosis, clubbing, edema Skin: warm, dry, well perfused. Medications Medication Current Medications Amlodipine Besylate (Norvasc) 10 mg DAILY PO Last administered on 12/20/18 09:20; Admin Dose 10 MG; Start 12/17/18 at 09:00 Atorvastatin Calcium (Lipitor) 5 mg QHS PO Last administered on 12/19/18 20:13; Admin Dose 5 MG; Start 12/16/18 at 21:00 Lisinopril (Zestril) 10 mg DAILY PO Last administered on 12/20/18 09:19; Admin Dose 10 MG; Start 12/17/18 at 09:00 Loratadine (Claritin) 10 mg DAILY PO Last administered on 12/19/18 08:31; Admin Dose 10 MG; Start 12/17/18 at 09:00 Metoprolol Succinate (Toprol Xl) 25 mg DAILY PO Last administered on 12/20/18 09:20; Admin Dose 25 MG; Start 12/17/18 at 09:00 IV Flush (NS 3 ml) 3 ml PER PROTOCOL IV ; Start 12/16/18 at 17:00 Acetaminophen (Tylenol Tab) 650 mg Q6H PRN PO .PAIN 1-3 OR TEMP Last administered on 12/16/18 18:24; Admin Dose 650 MG; Start 12/16/18 at 17:00 Senna (Senokot) 2 tab BID PO Last administered on 12/19/18 20:12; Admin Dose 2 TAB; Start 12/16/18 at 21:00 Ciprofloxacin/ Dextrose 200 ml @ 200 mls/hr Q12 IVPB Last administered on 12/20/18 09:12; Admin Dose 200 MLS/HR; Start 12/16/18 at 21:00 Metronidazole 100 ml @ 100 mls/hr Q8 IVPB Last administered on 12/20/18 14:07; Admin Dose 100 MLS/HR; Start 12/16/18 at 22:00 Pantoprazole (Protonix Iv) 40 mg BID@06,18 IV Last administered on 12/20/18 05:01; Admin Dose 40 MG; Start 12/16/18 at 18:00 Sodium Chloride 1,000 ml @ 75 mls/hr [id number] IV Last administered on 12/20/18at 00:37; Admin Dose 75 MLS/HR; Start 12/17/18 at 13:30 Albuterol (Ventolin Hfa) 2 puff Q4H RESP THERAPY PRN INH SHORTNESS OF BREATH; Start 12/18/18 at 15:00 Enoxaparin Sodium (Lovenox) 40 mg DAILY SC Last administered on 12/20/18at 09:16; Admin Dose 40 MG; Start 12/19/18 at 09:00 Ondansetron HCl (Zofran Inj) 4 mg Q4H PRN IV NAUSEA/VOMITING Last administered on 12/20/18at 14:07; Admin Dose 4 MG; Start 12/20/18 at 14:30 LAKESHA TAMAYO MD Dec 20, 2018 14:50
[2018-12-20] MEDS: PANTOPRAZOLE (EC) 40 MG TAB PO SCH (17:34)
[2018-12-20 20:20] VITALS: BP 122/57; PULSE 62; RESP 18
[2018-12-20] MEDS: ATORVASTATIN 10 MG TAB PO SCH (20:36)
[2018-12-21 02:23] VITALS: BP 164/79; PULSE 72; RESP 18
[2018-12-21 03:30] VITALS: BP 146/73; PULSE 70; RESP 18
[2018-12-21] MEDS: PANTOPRAZOLE (EC) 40 MG TAB PO SCH ×3 (06:00→17:33)
[2018-12-21 08:45] VITALS: BP 135/65; PULSE 75; RESP 17
[2018-12-21] MEDS: SENNA TAB PO SCH (08:53)
[2018-12-21] MEDS: AMLODIPINE 10 MG TAB PO SCH (08:54)
[2018-12-21] MEDS: LORATADINE 10 MG TAB PO SCH (08:54)
[2018-12-21] MEDS: LISINOPRIL 10 MG TAB PO SCH (08:55)
[2018-12-21] MEDS: METOPROLOL (XL) 25 MG TAB PO SCH (08:55)
[2018-12-21] MEDS: ENOXAPARIN 40 MG/0.4 ML SYG SC SCH (08:56)
[2018-12-21] MEDS: SOD CHLORIDE 0.9% 1,000 ML IV SCH (09:03)
[2018-12-21 14:00] VITALS: BP 138/67; PULSE 76; RESP 18
--- NOTE | 2018-12-21 17:01 | PN ---
Date/Time of Note Date/Time of Note DATE: 12/21/18 TIME: 16:56 Assessment/Plan VTE Prophylaxis Risk score (from Nsg)>0 risk: 7 SCD applied (from Nsg): Yes Pharmacological prophylaxis: LMWH Lines/Catheters IV Catheter Type (from Nrsg): Peripheral IV Urinary Cath still in place: No Assessment/Plan Assessment/Plan 78 yo woman with history of colon cancer presents with abdominal pain. #Abdominal pain - Differential includes food poisoning versus diverticulitis versus dyspepsia - Cont protonix BID - Will hold IV fluids - Continue full liquids, advance as tolerated. - She reports abdominal pain has resolved. #PO intolerance, nausea and vomiting - She has only been on for 5 days, but no longer is having diverticulitis type pain. - Small bowel followthrough normal, she is passing stool; so no obstruction or ileus. - Now after stopping Abx, nausea and vomiting significantly improved and dizziness resolved #Chest tightness - History not consistent with ischemic heart disease - EKG without ischemic changes. #Hypoxia - She reports history of COPD - Will continue home albuterol - If drops hypoxic <88% will qualify for home O2. #HTN - Continue home antihypertensives. DVT: SCDs GI: Protonix Dispo: Anticipate discharge in 24-48 hours if tolerating diet and ambulating. Result Diagram: 12/19/1890112/19/18901 Subjective 24 Hr Interval Summary Free Text/Dictation Patient is significantly improved today and attributes her symptoms to stopping antibiotics. Was able to ambulate about 30 feet today with minimal assistance, but afterwards got dizzy and slightly nauseated. Exam/Review of Systems Exam Vitals Vital Signs Date Temp Pulse Resp B/P (MAP) Pulse Ox O2 O2 Flow FiO2 Time Delivery Rate 12/21/18 98.1 75 17 135/65 94 Nasal 2.0 08:45 (88) Cannula Intake and Output 12/20/18 12/20/18 12/21/18 1515:00 23:00 07:00 IntakeIntake Total 400 ml 1550 ml 525 ml BalanceBalance 400 ml 1550 ml 525 ml Exam Gen: Frail appearing elderly woman in no acute distress. Eyes: PERRL, no icterus HEENT: Moist mucous membranes, clear oropharynx, no pharyngeal erythema Neck: No JVD. No lymphadenopathy. Card: Regular rate and rhythm, no murmurs Pulm: Clear to auscultation bilaterally. Abd: LLQ colostomy with liquid stool. Guarding to deep palpation. Nondistended, no rebound tenderness. Ext: No cyanosis, clubbing, edema Skin: warm, dry, well perfused. Medications Medication Current Medications Amlodipine Besylate (Norvasc) 10 mg DAILY PO Last administered on 12/21/18 08:54; Admin Dose 10 MG; Start 12/17/18 at 09:00 Atorvastatin Calcium (Lipitor) 5 mg QHS PO Last administered on 12/20/18 20:36; Admin Dose 5 MG; Start 12/16/18 at 21:00 Lisinopril (Zestril) 10 mg DAILY PO Last administered on 12/21/18 08:55; Admin Dose 10 MG; Start 12/17/18 at 09:00 Loratadine (Claritin) 10 mg DAILY PO Last administered on 12/21/18 08:54; Admin Dose 10 MG; Start 12/17/18 at 09:00 Metoprolol Succinate (Toprol Xl) 25 mg DAILY PO Last administered on 12/21/18 08:55; Admin Dose 25 MG; Start 12/17/18 at 09:00 IV Flush (NS 3 ml) 3 ml PER PROTOCOL IV ; Start 12/16/18 at 17:00 Acetaminophen (Tylenol Tab) 650 mg Q6H PRN PO .PAIN 1-3 OR TEMP Last adm inistered on 12/16/18 18:24; Admin Dose 650 MG; Start 12/16/18 at 17:00 Senna (Senokot) 2 tab BID PO Last administered on 12/20/18 20:36; Admin Dose 2 TAB; Start 12/16/18 at 21:00; Status Hold Albuterol (Ventolin Hfa) 2 puff Q4H RESP THERAPY PRN INH SHORTNESS OF BREATH; Start 12/18/18 at 15:00 Enoxaparin Sodium (Lovenox) 40 mg DAILY SC Last administered on 12/21/18 08:56; Admin Dose 40 MG; Start 12/19/18 at 09:00 Ondansetron HCl (Zofran Inj) 4 mg Q4H PRN IV NAUSEA/VOMITING Last administered on 12/20/18 14:07; Admin Dose 4 MG; Start 12/20/18 at 14:30 Pantoprazole (Protonix Tab) 40 mg BID@0600,1800 PO Last administered on 12/20/18at 17:34; Admin Dose 40 MG; Start 12/20/18 at 18:00 LAKESHA TAMAYO MD Dec 21, 2018 17:01
[2018-12-21 20:00] VITALS: BP 151/74; PULSE 75; RESP 18
[2018-12-21] MEDS: ATORVASTATIN 10 MG TAB PO SCH (20:10)
[2018-12-22 02:00] VITALS: BP 145/72; PULSE 66; RESP 16
[2018-12-22] MEDS: PANTOPRAZOLE (EC) 40 MG TAB PO SCH ×2 (06:05→17:28)
[2018-12-22 08:20] VITALS: BP 149/72; PULSE 64; RESP 18
[2018-12-22] MEDS: LORATADINE 10 MG TAB PO SCH (08:35)
[2018-12-22] MEDS: LISINOPRIL 10 MG TAB PO SCH (08:36)
[2018-12-22] MEDS: METOPROLOL (XL) 25 MG TAB PO SCH (08:36)
[2018-12-22] MEDS: AMLODIPINE 10 MG TAB PO SCH (08:36)
[2018-12-22] MEDS: ENOXAPARIN 40 MG/0.4 ML SYG SC SCH (08:38)
[2018-12-22] MEDS ORDERED: POTASSIUM CHLORIDE (SR) 20 MEQ TAB PO STA (09:29)
[2018-12-22] MEDS ORDERED: MAGNESIUM SULFATE 2 GM/50 ML 50 ML IVPB ONE (09:30)
[2018-12-22 14:00] VITALS: BP 141/65; PULSE 87; RESP 18
--- NOTE | 2018-12-22 15:18 | PN ---
Date/Time of Note Date/Time of Note DATE: 12/22/18 TIME: 15:13 Assessment/Plan VTE Prophylaxis Risk score (from Nsg)>0 risk: 7 SCD applied (from Ns): Yes Pharmacological prophylaxis: LMWH Lines/Catheters IV Catheter Type (from Nrsg): Saline Lock Urinary Cath still in place: No Assessment/Plan Assessment/Plan 78 yo woman with history of colon cancer presents with abdominal pain. #Abdominal pain - Differential includes food poisoning versus diverticulitis versus dyspepsia - Cont protonix BID - Will hold IV fluids - Continue full liquids, advance as tolerated. - She reports abdominal pain has resolved. #PO intolerance, nausea and vomiting - s/p 5 days IV Abx for diverticulitis. - Small bowel followthrough normal, she is passing stool; so no obstruction or ileus. - Now after stopping Abx, nausea and vomiting significantly improved and dizziness resolved. #Chest tightness - History not consistent with ischemic heart disease - EKG without ischemic changes. #Hypoxia - She reports history of COPD - Will continue home albuterol - Hypoxic <88% on room air, case management consulted for home O2. #HTN - Continue home antihypertensives. DVT: SCDs GI: Protonix Dispo: Anticipate discharge tomorrow when walking with PT and when home oxygen set up. Result Diagram: 12/22/18 0759 12/22/18 0759 Subjective 24 Hr Interval Summary Free Text/Dictation Patient doing well. No more abdominal pain or vomiting. Requesting solid food. Offered patient discharge today, she is apprehensive and wants to wait for PT. Also wants home oxygen. Desaturated to 83% after ambulating on room air. Exam/Review of Systems Exam Vitals Vital Signs Date Temp Pulse Resp B/P (MAP) Pulse Ox O2 O2 Flow FiO2 Time Delivery Rate 12/22/18 98.0 64 18 149/72 94 Nasal 2.0 08:20 (97) Cannula Intake and Output 12/21/18 12/21/18 12/22/18 1515:00 23:00 07:00 IntakeIntake Total 2655 ml 300 ml 450 ml BalanceBalance 2655 ml 300 ml 450 ml Exam Gen: Frail appearing elderly woman in no acute distress. Eyes: PERRL, no icterus HEENT: Moist mucous membranes, clear oropharynx, no pharyngeal erythema Neck: No JVD. No lymphadenopathy. Card: Regular rate and rhythm, no murmurs Pulm: Clear to auscultation bilaterally. Abd: LLQ colostomy with liquid stool. Nontender to deep palpation. Nondistended, no rebound tenderness. Ext: No cyanosis, clubbing, edema Skin: warm, dry, well perfused. Results Results 24hrs Laboratory Tests Test 12/22/18 07:59 White Blood Count 5.7 # Red Blood Count 4.36 Hemoglobin 12.3 Hematocrit 36.7 L Mean Corpuscular Volume 84.2 Mean Corpuscular Hemoglobin 28.2 L Mean Corpuscular Hemoglobin Concent 33.5 Red Cell Distribution Width 12.9 Platelet Count 202 Mean Platelet Volume 9.7 Immature Granulocytes % 0.400 Neutrophils % 66.8 Lymphocytes % 21.3 Monocytes % 8.3 Eosinophils % 2.8 Basophils % 0.4 Nucleated Red Blood Cells % 0.0 Immature Granulocytes # 0.020 Neutrophils # 3.8 Lymphocytes # 1.2 Monocytes # 0.5 Eosinophils # 0.2 Basophils # 0.0 Nucleated Red Blood Cells # 0.0 Sodium Level 137 Potassium Level 3.0 L Chloride Level 101 Carbon Dioxide Level 31 Anion Gap 5 Blood Urea Nitrogen 6 L Creatinine 0.59 Est Glomerular Filtrat Rate mL/min Glucose Level 106 Calcium Level 8.2 L Phosphorus Level 2.9 Magnesium Level 1.6 L Medications Medication Current Medications Amlodipine Besylate (Norvasc) 10 mg DAILY PO Last administered on 12/22/18 08:36; Admin Dose 10 MG; Start 12/17/18 at 09:00 Atorvastatin Calcium (Lipitor) 5 mg QHS PO Last administered on 12/21/18at 20:10; Admin Dose 5 MG; Start 12/16/18 at 21:00 Lisinopril (Zestril) 10 mg DAILY PO Last administered on 12/22/18 08:36; Admin Dose 10 MG; Start 12/17/18 at 09:00 Loratadine (Claritin) 10 mg DAILY PO Last administered on 12/22/18 08:35; Admin Dose 10 MG; Start 12/17/18 at 09:00 Metoprolol Succinate (Toprol Xl) 25 mg DAILY PO Last administered on 12/22/18 08:36; Admin Dose 25 MG; Start 12/17/18 at 09:00 IV Flush (NS 3 ml) 3 ml PER PROTOCOL IV ; Start 12/16/18 at 17:00 Acetaminophen (Tylenol Tab) 650 mg Q6H PRN PO .PAIN 1-3 OR TEMP Last administered on 12/16/18 18:24; Admin Dose 650 MG; Start 12/16/18 at 17:00 Senna (Senokot) 2 tab BID PO Last administered on 12/20/18 20:36; Admin Dose 2 TAB; Start 12/16/18 at 21:00; Status Hold Albuterol (Ventolin Hfa) 2 puff Q4H RESP THERAPY PRN INH SHORTNESS OF BREATH; Start 12/18/18 at 15:00 Enoxaparin Sodium (Lovenox) 40 mg DAILY SC Last administered on 12/22/18 08:38; Admin Dose 40 MG; Start 12/19/18 at 09:00 Ondansetron HCl (Zofran Inj) 4 mg Q4H PRN IV NAUSEA/VOMITING Last administered on 12/20/18 14:07; Admin Dose 4 MG; Start 12/20/18 at 14:30 Pantoprazole (Protonix Tab) 40 mg BID@0600,1800 PO Last administered on 12/22/18 06:05; Admin Dose 40 MG; Start 12/20/18 at 18:00 LAKESHA TAMAYO MD Dec 22, 2018 15:18
[2018-12-22 20:10] VITALS: BP 143/69; PULSE 72; RESP 18
[2018-12-22] MEDS: ATORVASTATIN 10 MG TAB PO SCH (20:16)
[2018-12-23 02:35] VITALS: BP 135/77; PULSE 68; RESP 18
[2018-12-23] MEDS: PANTOPRAZOLE (EC) 40 MG TAB PO SCH ×2 (05:08→17:17)
[2018-12-23 07:55] VITALS: BP 168/77; PULSE 76; RESP 17
[2018-12-23] MEDS: AMLODIPINE 10 MG TAB PO SCH (08:11)
[2018-12-23] MEDS: LISINOPRIL 10 MG TAB PO SCH (08:11)
[2018-12-23] MEDS: ENOXAPARIN 40 MG/0.4 ML SYG SC SCH (08:11)
[2018-12-23] MEDS: METOPROLOL (XL) 25 MG TAB PO SCH (08:12)
[2018-12-23] MEDS: LORATADINE 10 MG TAB PO SCH (08:12)
[2018-12-23 14:00] VITALS: BP 145/76; PULSE 92; RESP 18
--- NOTE | 2018-12-23 15:23 | PDOCDIS ---
Discharge Instructions CONDITION [id number] Patient Condition: [id number] Stable HOME CARE INSTRUCTIONS: [id number] Diet Instructions: [id number] Low Fat /Cholesterol ACTIVITY: [id number] Activity Restrictions: [id number] Slowly Increase Activity Rest between Activity Avoid heavy lifting FOLLOW UP/APPOINTMENTS Follow-up Plan Please take your medications as prescribed, see your doctor in the clinic in the next 1 week. CHILO BUENO Dec 23, 2018 15:23
[2018-12-23] MEDS ORDERED: PANT40TA4 PO (15:25)
[2018-12-23] MEDS ORDERED: SENN-120 PO (15:25)
--- NOTE | 2018-12-23 15:31 | DS ---
Date/Time of Note Date/Time of Note DATE: 12/23/18 TIME: 15:27 Discharge Summary Admission/Discharge Info Admit Date/Time Dec 16, 2018 at 15:50 Discharge Date/Time Discharge Diagnosis #Abdominal pain-improved, likely secondary to food poisoning versus diverticu litis versus dyspepsia -status post antibiotic treatment #PO intolerance, nausea and vomiting -resolved now- Small bowel followthrough normal, #Chest tightness-resolved #Hypoxia: <88% on room air, case management consulted for home O2. #HTN Patient Condition: Stable Hx of Present Illness 78 yo woman with history of colorectal carcinoma and diverticulosis who presents with acute abdominal pain. She was in her usual state of health until last night, when she was woken up by acute stabbing mid abdominal pain. Looks about lower epigastric -> umbilical. She had eaten some ham and [id number] for dinner that had been left out for a few days so she was concerned about food poisoning. She induced vomiting in herself and that seemed to resolve symptoms slightly. She then came to the hospital for further evaluation. She had a colonoscopy late 2017 at [facility] showing diverticulosis or diverticulitis. She's never had this pain before. In the ED she was tachy to 110, afebrile, BP 159/105. WBC 11.1, labs otherwise unremarkable. CT showed constipation, R colon diverticulitis. Hospital Course Patient was admitted, placed on antibiotics for her diverticulitis. Patient also had some chest tightness which resolved. Diverticulitis improved as well. Eventually patient's nausea vomiting symptoms and decreased p.o. tolerance res olved and patient was able to be started on a diet. Patient also seen by physical therapy team. Able to ambulate, tolerate diet, vital signs and labs are stable on the day of discharge. Patient started on PPI twice daily as well and tolerating that well here in the hospital per; she did have some hypoxia and was tested for home oxygen set up as she did qualify and case management is presently attempting to set this up once this is set up and confirm patient likely be discharged home later today and in improved condition. See below for full list of discharge medications. Home Meds Active Scripts Sennosides* (Senna Lax*) 8.6 Mg Tablet, 2 TAB PO BID, #60 TAB Prov:CHILO BUENO 12/23/18 Pantoprazole* (Pantoprazole*) 40 Mg Tablet., 40 MG PO BID@0600,1800, #60 2 Refills Prov:CHILO BUENO 12/23/18 Reported Medications Atorvastatin Calcium (Atorvastatin Calcium) 10 Mg Tablet, 5 MG PO QHS, #30 TAB 12/16/18 Loratadine* (Loratadine*) 10 Mg Tablet, 10 MG PO DAILY, #30 TAB 12/16/18 Famotidine* (Famotidine*) 20 Mg Tablet, 20 MG PO DAILY, #30 TAB 12/16/18 Amlodipine Besylate* (Amlodipine Besylate*) 10 Mg Tablet, 10 MG PO DAILY, #30 TAB 12/16/18 Lisinopril* (Lisinopril*) 10 Mg Tablet, 10 MG PO DAILY, #30 TAB 12/16/18 Metoprolol Succinate* (Toprol XL*) 25 Mg Tab.sr.24h, 25 MG PO DAILY, #30 TAB 12/16/18 Follow-up Plan Please take your medications as prescribed, see your doctor in the clinic in the next 1 week. Primary Care Provider Not On Staff Doctor Time spent on discharge: > 30 minutes CHILO BUENO Dec 23, 2018 15:31
== END 2018-12-23 19:28 | disposition home health service (06) | DRG 392 ==
LOC: E/R 13:40 → PP2 15:50
PROVIDERS: ADMIT Internal Medicine; ATTEND Hospitalist
DX: K57.92 Diverticulitis of intestine, part unspecified, without perforation or abscess without bleeding (principal); T62.91XA Toxic effect of unspecified noxious substance eaten as food, accidental (unintentional), initial encounter; R09.02 Hypoxemia; R07.89 Other chest pain; I10 Essential (primary) hypertension; E86.0 Dehydration; J44.9 Chronic obstructive pulmonary disease, unspecified; Z93.3 Colostomy status; E78.5 Hyperlipidemia, unspecified; Z85.048 Personal history of other malignant neoplasm of rectum, rectosigmoid junction, and anus
CPT/HCPCS: 36415; 71045; 74176; 74250; 80048; 80053; 80061; 81003; 83036; 83690; 83735; 84100; 84443; 85025; 93005; 96374; 97110; 97116; 97162; 97530; C9113; J0744; J1650; J1956; J2270; J2405; J3475; J7030; J7040